=== PATIENT | male | born 2005 | race African-American/Black ===

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

== ENCOUNTER 2025-01-31 09:24 | Emergency (ER) | payer OTHER ==
--- OUTSIDE RECORDS SUMMARY | 2025-01-31 09:49 | XMS REPORT | Continuity of Care Document ---
Author Name Unknown Address [address] [facility] [place] [address] [facility] Address [address] [facility] [address] [place] [address] Care Team Providers Care Gas Operation Manager Name Role Phone Kindra Duran Primary Care Physician [phone] Jany Berg RN Attending Clinician Unavailable Only, Ang Db Test Attending Clinician Unavailabl Gladys Rich Attending Clinician [phone] GLADYS CARRINGTON Attending Clinician Unavailable Doctor Unassigned, [place] Attending Clinician U TOMASZ Boogie Attending Clinician Unavail able Nickolas Mclean MD Attending Clinician [phone] Sarah Hernadez RN Attending Clinician Unavailable Kofi CASEY, Candelaria Arteaga Attending Clinician Unavailab ALCIDES Nolen Attending Clinician Unavailable , Lab Attending Clinician Unavailable Alcides Cast MD Attending Clinician [phone] Lab, Adc Fam Pob I Attending Clinician Unavailab Katalina Restrepo Attending Clinician [phone] KATALINA AGUILAR Attending Clinician Unavailable Payers Payer Name Policy Type Policy Number Effective Date Expirati on Date Source Allergies, Adverse Reactions, Alerts Allergy Name Allergy Type Status Severity Reaction(s) Onset Date Inactive Date Treating Clinician Comments Source NO KNOWN ALLERGIE S Drug Class Active [facility] Social History Social Habit Start Date Stop Date Quantity Comments Source Exposure to SARS-CoV-2 (event) Not sure [facility] Sex Assigned At 2005 00:00:00 2005 00:00:00 [facility] Smoking Status Start Date Stop Date Source Unknown if ever smoked [facility] Medications Ordered Medication Name Filled Medication Name Start Date Stop Date Current Medication? Ordering Clinician Indication Dosage Frequency Signature (SIG) Comments Components Source AMLODIPINE TAB 2.5MG 2021-09 00:00: 00 Yes Ken Rasheed DYANAVEL XR AKI 2.5MG/ML 2021-09 00:00: 00 Yes Ken Rasheed IBUPROFEN 2021-09 00:00: 00 Yes Ken Rasheed AMOX/K CLAV [id number] 2-20 00:00: 00 Yes Ken Rasheed TAKE 6 ML BY MOUTH IN THE MORNING 01-04 00:00: 00 Yes Ken Rasheed Dose Unknown 10-14 00:00: 00 Yes Ken Rasheed hydrocortis one 2.5 % topical ointment 06-22 00:00: 00 Yes 1% Ken Rasheed mupirocin 2 % topical ointment 06-22 00:00: 00 Yes 1% Ken Rasheed amoxicillin 875 mg-potassiu m clavulanate 125 mg tablet 06-22 00:00: 00 Yes 1mg Ken Rasheed Trileptal 300 mg tablet 02-23 00:00: 00 Yes 1mg Ken Rasheed Vyvanse 50 mg capsule 02-23 00:00: 00 Yes 1mg Ken Rasheed cetirizine 10 mg tablet 01-26 00:00: 00 Yes 1mg Ken Rasheed Trileptal 300 mg tablet 01-26 00:00: 00 Yes 1mg Ken Rasheed Vyvanse 50 mg capsule 01-26 00:00: 00 Yes 1mg Ken Rasheed Immunizations Ordered Immunization Name Filled Immunization Name Date Status Comments Source SARS-COV-2 COVID-19 PFIZER VACCINE 2021-02-15 00:00:00 Completed [facility] SARS-COV-2 COVID-19 PFIZER VACCINE 2021-02-15 00:00:00 Completed [facility] SARS-COV-2 COVID-19 PFIZER VACCINE 2021-02-15 00:00:00 Completed [facility] HPV9 HPV9 2018-05-04 00:00:00 Completed Ken Rasheed Influenza, seasonal, inj Influenza, seasonal, inj 2017-08-04 00:00:00 Completed Ken Rasheed HPV9 HPV9 2017-05-15 00:00:00 Completed Ken Rasheed Influenza, seasonal, inj Influenza, seasonal, inj 2016-11-07 00:00:00 Completed Ken Rasheed meningococcal MCV4P meningococcal MCV4P 00:00:00 Completed Ken Rasheed Tdap Tdap 2016-01-08 00:00:00 Completed Ken Rasheed DTaP DTaP 2008-05-23 00:00:00 Completed Ken Rasheed Hep A, ped/adol, 2 dose Hep A, ped/adol, 2 dose 2008-05-23 00:00:00 Completed Ken Rasheed MMR MMR 2008-05-23 00:00:00 Completed Ken Rasheed IPV IPV 2008-05-23 00:00:00 Completed Ken Rasheed Hib (PRP-OMP) Hib (PRP-OMP) 2008-03-13 00:00:00 Completed Ken Rasheed Hep A, ped/adol, 2 dose Hep A, ped/adol, 2 dose 2007-10-26 00:00:00 Completed Ken Rahseed DTaP DTaP 2006-10-28 00:00:00 Completed Ken Rasheed MMR MMR 2006-10-28 00:00:00 Completed Ken Rasheed IPV IPV 2006-10-28 00:00:00 Completed Ken Rasheed varicella varicella 2006-10-28 00:00:00 Completed Ken Rasheed DTaP DTaP 2006-05-29 00:00:00 Completed Ken Rasheed Pneumococcal conjugate P Pneumococcal conjugate P 2006-05-29 00:00:00 Completed Ken Rasheed IPV IPV 2006-05-29 00:00:00 Completed Ken Rasheed DTaP DTaP 2006-03-13 00:00:00 Completed Ken Rasheed Pneumococcal conjugate P Pneumococcal conjugate P 2006-03-13 00:00:00 Completed Ken Rasheed DTaP DTaP 2005-05-07 00:00:00 Completed Ken Rasheed Hib (PRP-OMP) Hib (PRP-OMP) 2005-05-07 00:00:00 Completed Ken Rasheed MMR MMR 2005-05-07 00:00:00 Completed Ken Rasheed Pneumococcal conjugate P Pneumococcal conjugate P 2005-05-07 00:00:00 Completed Ken Rasheed IPV IPV 2005-05-07 00:00:00 Completed Ken Rasheed varicella varicella 2005-05-07 00:00:00 Completed Ken Rasheed Hep B, adolescent or ped Hep B, adolescent or ped 2005-02-07 00:00:00 Completed Ken Rasheed Hib (PRP-OMP) Hib (PRP-OMP) 2005-02-07 00:00:00 Completed Ken Rasheed Pneumococcal conjugate P Pneumococcal conjugate P 2005-02-07 00:00:00 Completed Ken Rasheed IPV IPV 2005-02-07 00:00:00 Completed Ken Rasheed DTaP DTaP 2005-02-07 00:00:00 Completed Ken Rasheed DTaP DTaP 2004 00:00:00 Completed Ken Rasheed Hep B, adolescent or ped Hep B, adolescent or ped 2004 00:00:00 Completed Ken Rasheed Hib (PRP-OMP) Hib (PRP-OMP) 2004 00:00:00 Completed Ken Rasheed Pneumococcal conjugate P Pneumococcal conjugate P 2004 00:00:00 Completed Ken Rasheed IPV IPV 2004 00:00:00 Completed Ken Rasheed Hep B, adolescent or ped Hep B, adolescent or ped 2004 00:00:00 Completed Ken Rasheed Vital Signs Vital Name Observation Time Observation Value Comments S ource Respiratory Rate 2025-01-11 14:28:00 18.00 /min Ken Rasheed BP Systolic 2025-01-11 14:28:00 129 mm[Hg] Avi Rasheed BP Diastolic 2025-01-11 14:28:00 73 mm[Hg] Melvin Rasheed Weight Measured 2025-01-11 14:28:00 197.40 pounds Ken Rasheed Height Measured 2025-01-11 14:28:00 61.20 inches Ken Rasheed Body Temperature 2025-01-11 14:28:00 98.10 degrees Ken F Wili Heart Rate 2025-01-11 14:28:00 74.00 /min Precious en F Wili BP Systolic 2023-02-14 09:49:00 130 mm[Hg] Step hen F Wili BP Diastolic 2023-02-14 09:49:00 70 mm[Hg] Melvin phen F Wili Weight Measured 2023-02-14 09:49:00 175.10 pounds Ken F Wili Height Measured 2023-02-14 09:49:00 63.78 inches Ken F Wili Body Temperature 2023-02-14 09:49:00 98.20 degrees Ken F Wili Heart Rate 2023-02-14 09:49:00 66.00 /min Precious en F Wili Respiratory Rate 2023-02-14 09:49:00 18.00 /min Ken F Wili BP Systolic 2022-12-31 13:58:00 142 mm[Hg] Step hen F Wili BP Diastolic 2022-12-31 13:58:00 77 mm[Hg] Melvin phen F Wili Weight Measured 2022-12-31 13:58:00 174.40 pounds Ken F Wili Height Measured 2022-12-31 13:58:00 63.78 inches Ken F Wili Body Temperature 2022-12-31 13:58:00 98.60 degrees Ken F Wili Heart Rate 2022-12-31 13:58:00 105.00 /min Step hen F Wili Respiratory Rate 2022-12-31 13:58:00 Ken F Wili BP Systolic 2022-09-17 15:29:00 128 mm[Hg] Step hen F Wili BP Diastolic 2022-09-17 15:29:00 76 mm[Hg] Melvin phen F Wili Weight Measured 2022-09-17 15:29:00 187.00 pounds Ken F Wili Height Measured 2022-09-17 15:29:00 63.78 inches Ken F Wili Body Temperature 2022-09-17 15:29:00 98.60 degrees Ken F Wili Heart Rate 2022-09-17 15:29:00 70.00 /min Precious en F Wili Respiratory Rate 2022-09-17 15:29:00 18.00 /min Ken F Wili BP Systolic 2019-10-11 15:10:00 127 mm[Hg] Step hen F Wili BP Diastolic 2019-10-11 15:10:00 78 mm[Hg] Melvin phen F Wili Weight Measured 2019-10-11 15:10:00 167.00 pounds Ken F Wili Height Measured 2019-10-11 15:10:00 63.78 inches Ken F Wili Body Temperature 2019-10-11 15:10:00 98.60 degrees Ken F Wili Heart Rate 2019-10-11 15:10:00 83.00 /min Precious en F Wili Respiratory Rate 2019-10-11 15:10:00 16.00 /min Ken F Wili BP Diastolic 2019-07-27 16:34:00 72 mm[Hg] Melvin phen F Wili Weight Measured 2019-07-27 16:34:00 162.00 pounds Ken F Wili Height Measured 2019-07-27 16:34:00 63.19 inches Ken F Wili Body Temperature 2019-07-27 16:34:00 Ken F Wili Heart Rate 2019-07-27 16:34:00 75.00 /min Precious en F Wili Respiratory Rate 2019-07-27 16:34:00 18.00 /min Ken F Wili BP Systolic 2019-07-27 16:34:00 119 mm[Hg] Step hen F Wili BP Systolic 2019-06-22 13:30:00 123 mm[Hg] Step hen F Wili BP Diastolic 2019-06-22 13:30:00 68 mm[Hg] Melvin phen F Wili Weight Measured 2019-06-22 13:30:00 164.00 pounds Ken F Wili Height Measured 2019-06-22 13:30:00 63.19 inches Ken F Wili Body Temperature 2019-06-22 13:30:00 97.90 degrees Ken F Wili Heart Rate 2019-06-22 13:30:00 90.00 /min Precious en F Wili Respiratory Rate 2019-06-22 13:30:00 18.00 /min Ken F Wili BP Systolic 2019-05-18 16:33:00 123 mm[Hg] Step hen F Wili BP Diastolic 2019-05-18 16:33:00 74 mm[Hg] Melvin phen F Wili Weight Measured 2019-05-18 16:33:00 166.20 pounds Ken F Wili Height Measured 2019-05-18 16:33:00 63.19 inches Ken F Wili Body Temperature 2019-05-18 16:33:00 98.00 degrees Ken F Wili Heart Rate 2019-05-18 16:33:00 72.00 /min Precious en F Wili Respiratory Rate 2019-05-18 16:33:00 18.00 /min Ken F Wili BP Systolic 2019-04-20 09:24:00 129 mm[Hg] Step hen F Wili BP Diastolic 2019-04-20 09:24:00 76 mm[Hg] Melvin phen F Wili Weight Measured 2019-04-20 09:24:00 162.00 pounds Ken F Wili Height Measured 2019-04-20 09:24:00 63.20 inches Ken F Wili Body Temperature 2019-04-20 09:24:00 97.70 degrees Ken F Wili Heart Rate 2019-04-20 09:24:00 67.00 /min Precious en F Wili Respiratory Rate 2019-04-20 09:24:00 18.00 /min Ken F Wili BP Systolic 2019-02-23 11:39:00 124 mm[Hg] Step hen F Wili BP Diastolic 2019-02-23 11:39:00 79 mm[Hg] Melvin phen F Wili Weight Measured 2019-02-23 11:39:00 152.00 pounds Ken F Wili Height Measured 2019-02-23 11:39:00 63.19 inches Ken F Wili Body Temperature 2019-02-23 11:39:00 98.70 degrees Ken F Wili Heart Rate 2019-02-23 11:39:00 80.00 /min Precious en F Wili Respiratory Rate 2019-02-23 11:39:00 Ken Rasheed Procedures Procedure Date / Time Performed Performing Clinicia n Source ASSIGNMENT OF BENEFITS 2020-06-02 20:25:57 Docto r Unassigned, [place] [facility] Encounters Start Date/Time End Date/Time Encounter Type Admission Type Attending [facility] Care Facility Care Department Encounter ID Source 2025-01-11 14:16:26 2025-01-11 14:16:26 Outpatient [facility] [id number] Ken Rasheed 2025-01-11 00:00:00 2025-01-11 00:00:00 Outpatient Visit [facility] [id number] Ken Rasheed 2022-12-31 14:48:57 2022-12-31 14:48:57 Outpatient [facility] [id number] Ken Rasheed 2021-10-05 00:00:00 2021-10-05 00:00:00 Telephone Jany Berg [facility] [id number] 350.1.13.10 4.2.7.2.686 [id number] [facility] 2021-10-03 14:30:00 2021-10-03 14:45:00 Laboratory Only Only, Ang Db Test [facility] 1.284.114 350.1.13.10 4.2.7.2.686 [id number] [facility] 2021-10-03 14:30:00 2021-10-03 14:30:00 Outpatient GLADYS WILLIAM [facility] [id number] [facility] 2021-10-03 13:30:00 2021-10-03 13:30:00 Outpatient R [facility] [id number] [facility] 2021-10-03 00:00:00 2021-10-03 00:00:00 Letter (Out) Doctor Unassigned, [place] [facility] [id number] 350.1.13.10 4.2.7.2.686 [id number] [facility] 2021-03-08 15:30:00 2021-03-08 15:30:00 Outpatient TOMASZ ASENCIO [facility] [id number] [facility] 2021-02-15 15:30:00 2021-02-15 15:30:00 Outpatient TOMASZ ASENCIO [facility] [id number] [facility] 2020-06-07 00:00:00 2020-06-07 00:00:00 Telephone Nickolas Mclean [facility] 1.2.114 350.1.13.10 4.2.7.2.686 [id number] [facility] 2020-06-07 00:00:00 2020-06-07 00:00:00 Telephone Nickolas Mclean [facility] [id number] 350.1.13.10 4.2.7.2.686 [id number] 2020-06-06 00:00:00 2020-06-06 00:00:00 [id number] 350.1.13.10 4.2.7.2.686 [id number] [facility] 2020-06-06 00:00:00 2020-06-06 00:00:00 [facility] [id number] 350.1.13.10 4.2.7.2.686 [id number] 2020-06-03 00:00:00 2020-06-03 00:00:00 Letter (Out) [facility] [id number] 350.1.13.10 4.2.7.2.686 [id number] 2020-06-03 00:00:00 2020-06-03 00:00:00 Letter (Out) [facility] [id number] 350.1.13.10 4.2.7.2.686 [id number] [facility] 2020-06-02 15:45:00 2020-06-02 15:45:00 Outpatient ALCIDES ELIZONDO [facility] [id number] [facility] 2020-06-02 15:29:57 2020-06-02 15:44:57 Starch Cooker Visit 1, Adc Lab [facility] 1.2.840.114 350.1.13.10 4.2.7.2.686 [id number] 2020-06-02 15:29:57 2020-06-02 15:44:57 Starch Cooker Visit 1, Adc Lab Alcides Cast [facility] 1.2.840.114 350.1.13.10 4.2.7.2.686 [id number] [facility] 2020-06-02 00:00:00 2020-06-02 00:00:00 Letter (Out) [facility] 1.2.840.114 350.1.13.10 4.2.7.2.686 [id number] 2020-06-02 00:00:00 2020-06-02 00:00:00 Orders Only Doctor Unassigned, [place] [facility] 1.2.840.114 350.1.13.10 4.2.7.2.686 [id number] 2020-06-02 00:00:00 2020-06-02 00:00:00 Letter (Out) Kofi, [facility] 1.2.840.114 350.1.13.10 4.2.7.2.686 [id number] [facility] 2020-06-02 00:00:00 2020-06-02 00:00:00 Orders Only Doctor Unassigned, [place] [facility] 1.2.840.114 350.1.13.10 4.2.7.2.686 [id number] [facility] 2020-06-01 13:15:08 2020-06-01 13:35:08 Laboratory Only Lab, Adc Fam Pob I Katalina Aguilar [facility] 1.0.114 350.1.13.10 4.2.7.2.686 [id number] [facility] 2020-06-01 13:15:08 2020-06-01 13:35:08 Laboratory Only Lab, Adc Fam Pob I [facility] 1.840.114 350.1.13.10 4.2.7.2.686 [id number] 2020-06-01 13:00:00 2020-06-01 13:00:00 Outpatient KATALINA PONCE [facility] [id number] [facility] 2020-05-30 00:00:00 2020-05-30 00:00:00 Outpatient [facility] [id number] [facility] Results Test Description Test Time Test Comments Results Result Co mments Source Ken RasheedCOMPREHENSIVE METABOLIC [id number] 00:00:00* Test Item Value Reference Range Interpretation Comme nts GLUCOSE (test code = 2345-7) 81 mg/dL UREA NITROGEN (BUN) (test code = 3094-0) 8 mg/dL CREATININE (test code = 2160-0) 0.66 mg/dL eGFR NON-AFR. UGANDAN (test code = 55990-2) DNR mL/min/1.73m2 eGFR (test code = 27900-3) DNR mL/min/1.73m2 BUN/CREATININE RATIO (test code = 3097-3) NOT APPLICABLE (calc) SODIUM (test code = 2951-2) 140 mmol/L POTASSIUM (test code = 2823-3) 4.5 mmol/L CHLORIDE (test code = 2075-0) 104 mmol/L CARBON DIOXIDE (test code = 2027-9) 24 mmol/L CALCIUM (test code = 14587-7) 10.0 mg/dL PROTEIN, TOTAL (test code = 2885-2) 7.3 g/dL ALBUMIN (test code = 1751-7) 4.6 g/dL GLOBULIN (test code = 82810-7) 2.7 g/dL(calc) ALBUMIN/GLOBULIN RATIO (test code = 1759-0) 1.7 (calc) BILIRUBIN, TOTAL (test code = 1975-2) 1.0 mg/dL ALKALINE PHOSPHATASE (test code = 6768-6) 358 U/L AST (test code = 1920-8) 16 U/L ALT (test code = 1742-6) 11 U/L Ken [id number] 00:00:00* Test Item Value Reference Range Interpretation Comme nts TSH (test code = 3016-3) 0.96 mIU/L Ken RasheedHEMOGLOBIN [id number] 00:00:00* Test Item Value Reference Range Interpretation Comme nts HEMOGLOBIN A1c (test code = 4548-4) 5.7 %oftotalHgb Ken RasheedCBC (INCLUDES DIFF/PLT)2019-02-24 00:00:00* Test Item Value Reference Range Interpretation Comme nts WHITE BLOOD CELL COUNT (test code = 6690-2) 6.3 Thousand/uL RED BLOOD CELL COUNT (test code = 789-8) 5.51 Million/uL HEMOGLOBIN (test code = 718-7) 14.8 g/dL HEMATOCRIT (test code = 4544-3) 44.9 % MCV (test code = 787-2) 81.5 fL MCH (test code = 785-6) 26.9 pg MCHC (test code = 786-4) 33.0 g/dL RDW (test code = 788-0) 12.9 % PLATELET COUNT (test code = 777-3) 261 Thousand/uL MPV (test code = 776-5) 12.6 fL ABSOLUTE NEUTROPHILS (test code = 751-8) 2048 cells/uL ABSOLUTE BAND NEUTROPHILS (test code = 60066-4) DNR cells/uL ABSOLUTE METAMYELOCYTES (gilberto t code = 39207-4) DNR cells/uL ABSOLUTE MYELOCYTES (test code = 36855-9) DNR cells/uL ABSOLUTE PROMYELOCYTES (test code = 19163-7) DNR cells/uL ABSOLUTE LYMPHOCYTES (test code = 731-0) 2778 cells/uL ABSOLUTE MONOCYTES (test cod e = 742-7) 334 cells/uL ABSOLUTE EOSINOPHILS (test code = 711-2) 1077 cells/uL ABSOLUTE BASOPHILS (test cod e = 704-7) 63 cells/uL ABSOLUTE BLASTS (test code = 19535-7) DNR cells/uL ABSOLUTE NUCLEATED RBC (test code = 00377-3) DNR cells/uL NEUTROPHILS (test code = 770-8) 32.5 % BAND NEUTROPHILS (test code = 764-1) DNR % METAMYELOCYTES (test code = 740-1) DNR % MYELOCYTES (test code = 749-2) DNR % PROMYELOCYTES (test code = 783-1) DNR % LYMPHOCYTES (test code = 736-9) 44.1 % REACTIVE LYMPHOCYTES (test code = 02271-7) DNR % MONOCYTES (test code = 5905-5) 5.3 % EOSINOPHILS (test code = 713-8) 17.1 % BASOPHILS (test code = 706-2) 1.0 % BLASTS (test code = 709-6) DNR % NUCLEATED RBC (test code = 72978-7) DNR /100WBC COMMENT(S) (test code = 8251-1) DNR Ken Rasheed Notes Date/Time Note Provider Source Ken Rasheed [facility]
--- NOTE | 2025-01-31 10:35 | RAD REPORT ---
EXAMINATION: XR RIGHT KNEE CLINICAL INDICATION: Male, 19 years old. PAIN TECHNIQUE: Multiple views of the right knee were obtained. COMPARISON: No prior exam. FINDINGS: No fracture or dislocation seen. Small suprapatellar joint effusion.
[2025-01-31] MEDS ORDERED: ACETAMINOPHEN 500 MG TAB ONE (10:37)
[2025-01-31] MEDS ORDERED: IBUPROFEN 200 MG TAB PO ONE (10:37)
--- NOTE | 2025-01-31 10:59 | EDPHYS ---
Physician Documentation [facility] Name: Power Auguste Age: 19 yrs Sex: Male : 2005 Arrival Date: 01/31/2025 Time: 09:24 Bed 11 Private MD: ED Physician Tom Puente HPI: 01/31 10:22 This 19 yrs old Black Male presents to ER via Ambulatory with complaints of Leg Injury sb4 - Right, Leg Swelling. 10:22 Patient states that he was playing football yesterday, he jumped up for a ball, and sb4 landed awkwardly on his right leg. Is complaining of pain in his right outer knee. Is able to ambulate, just with pain. Denies any prior issues with this leg. No numbness or tingling. Historical: - Allergies: 10:15 No Known Allergies; ap3 - Home Meds: 10:15 None [Active]; ap3 - PMHx: 10:15 None; ap3 - Immunization history:: Adult Immunizations up to date. - Infectious Disease History:: Denies. - Social history:: Smoking status: Patient denies any tobacco usage or history of. ROS: 10:22 Constitutional: Negative for fever, chills, and weight loss, sb4 10:22 MS/extremity: Positive for injury or acute deformity, pain, swelling, of the right knee, 10:22 All other systems are negative, Exam: 10:22 Constitutional: This is a well developed, well nourished patient who is awake, alert, sb4 and in no acute distress. Head/Face: Normocephalic, atraumatic. Eyes: Extra-ocular motions intact. Periorbital areas with no swelling, redness, or edema. ENT: Mucous membranes moist. Respiratory: No increased work of breathing, no retractions or nasal flaring. Skin: Warm, dry with normal turgor. Normal color with no rashes, no lesions, and no evidence of cellulitis. 10:22 Musculoskeletal/extremity: Joints: the right knee displays painful range of motion, swelling, tenderness, Weight bearing: able to fully bear weight, Vital Signs: 10:14 BP 152 / 79; Pulse 67; Resp 17; Temp 98.4(O); Pulse Ox 99% on R/A; Weight 83.91 kg; ap3 Height 5 ft. 4 in. ; Pain 7/10; 10:14 Body Mass Index 31.75 (83.91 kg, 162.56 cm) ap3 10:14 Pain Scale: Adult ap3 MDM: 09:40 Medical Screening Exam initiated sb4 10:23 Differential diagnosis: closed fracture, contusion, Ligamentous injury. sb4 10:36 Data reviewed: vital signs, nurses notes, radiologic studies, and as a result, I will sb4 discharge patient. Independent interpretation of the following test(s) in the Emergency Department X-Ray: My interpretation is my interpretation of the right knee x ray images is no acute fracture or dislocation. Counseling: I had a detailed discussion with the patient and/or guardian regarding the historical points, exam findings, and any diagnostic results supporting the discharge/admit diagnosis, radiology results, the need for outpatient follow up, a orthopedic surgeon, to return to the emergency department if symptoms worsen or persist or if there are any questions or concerns that arise at home. 01/31 10:17 Order name: Knee Right 3 View XRAY; Complete Time: 10:35 sb4 01/31 10:57 [place] [facility]: Knee brace; Complete Time: 10:57 jl7 Administered Medications: 10:45 Drug: Ibuprofen PO 600 mg PO once Route: PO; jl7 11:16 Follow up: Response: No adverse reaction; Medication administered at discharge. jl7 10:45 Drug: Acetaminophen PO 1000 mg PO once Route: PO; jl7 11:16 Follow up: Response: Medication administered at discharge. jl7 Disposition: 17:10 Co-signature as Attending Physician, Tom Puente MD. jj9 Disposition Summary: 01/31/25 10:59 Discharge Ordered Notes: Location: Home sb4 Problem: new sb4 Symptoms: are unchanged sb4 Condition: Stable sb4 Diagnosis - Sprain of other specified parts of right knee sb4 Followup: sb4 - With: Pk Darby MD - When: 1 week - Reason: Further diagnostic work-up, Recheck today's complaints, Re-evaluation by your physician Discharge Instructions: - Discharge Summary Sheet sb4 - Knee Sprain, Adult, [id number] sb4 - Lateral Collateral Knee Ligament Sprain sb4 Forms: - Work release form sb4 - Patient Portal Instructions sb4 - Leadership Thank You Letter sb4 Prescriptions: - meloxicam 7.5 mg Oral tablet - take 1 tablet ORAL route daily; 14 tablet; Refills: 0, Product Selection sb4 Permitted Signatures: Dispatcher [employer] Irina Perkins RN RN jl7 Elsi Diego RN RN ap3 Jennifer Maldonado, PALetha PAJohnC sb4 Tom Puente MD MD jj9 Corrections: (The following items were deleted from the chart) 10:57 10:36 Knee Immobilizer ordered. sb4 jl7
--- NOTE | 2025-01-31 10:59 | ER ---
Nurse's Notes [facility] Name: Power Auguste Age: 19 yrs Sex: Male : 2005 Arrival Date: 01/31/2025 Time: 09:24 Bed 11 Private MD: Diagnosis: Sprain of other specified parts of right knee Presentation: 01/31 10:14 Chief complaint: Patient states: he fell onto his right leg yesterday when playing ap3 football. patient is having pain on the outer portion of his right knee. patient currently rates his pain as a 7/10 on the pain scale. Coronavirus screen: At this time, the client does not indicate any symptoms associated with coronavirus-19. Ebola Screen: No symptoms or risks identified at this time. Initial Sepsis Screen: Does the patient meet any 2 criteria? No. Patient's initial sepsis screen is negative. Does the patient have a suspected source of infection? No. Patient's initial sepsis screen is negative. Risk Assessment: Do you want to hurt yourself or someone else? Patient reports no desire to harm self or others. Onset of symptoms was January 30, 2025. 10:14 Method Of Arrival: Ambulatory ap3 10:14 Acuity: XI 4 ap3 Triage Assessment: 10:15 General: Appears in no apparent distress. Behavior is calm, cooperative, appropriate ap3 for age. Pain: Complains of pain in right knee Pain currently is 7 out of 10 on a pain scale. Neuro: Level of Consciousness is awake, alert, obeys commands, Oriented to person, place, time, situation, Appropriate for age. Cardiovascular: Patient's skin is warm and dry. Respiratory: Airway is patent Respiratory effort is even, unlabored, Respiratory pattern is regular, symmetrical. Musculoskeletal: Reports pain in right knee. Injury Description: fall onto right knee. Historical: - Allergies: 10:15 No Known Allergies; ap3 - Home Meds: 10:15 None [Active]; ap3 - PMHx: 10:15 None; ap3 - Immunization history:: Adult Immunizations up to date. - Infectious Disease History:: Denies. - Social history:: Smoking status: Patient denies any tobacco usage or history of. Screenin:16 Abuse screen: Denies threats or abuse. Nutritional screening: No deficits noted. ap3 Tuberculosis screening: No symptoms or risk factors identified. 11:16 [facility] ED Fall Risk Assessment (Adult) History of falling in the last 3 months, jl7 including since admission Yes- single mechanical fall (1 pt) Confusion or Disorientation No (0 pts) Intoxicated or Sedated No (0 pts) Impaired Gait No (0 pts) Mobility Assist Device Used No (0 pt) Altered Elimination No (0 pt) Score/Fall Risk Level 0 - 2 = Low Risk Oriented to surroundings, Maintained a safe environment. Vital Signs: 10:14 BP 152 / 79; Pulse 67; Resp 17; Temp 98.4(O); Pulse Ox 99% on R/A; Weight 83.91 kg; ap3 Height 5 ft. 4 in. ; Pain 7/10; 10:14 Body Mass Index 31.75 (83.91 kg, 162.56 cm) ap3 10:14 Pain Scale: Adult ap3 ED Course: 09:31 Patient arrived in ED. im 09:37 Jennifer Maldonado PA-C is PHCP. sb4 09:37 Tom Puente MD is Attending Physician. sb4 10:15 Triage completed. ap3 10:16 Arm band placed on right wrist. ap3 10:33 Knee Right 3 View XRAY In Process Unspecified. EDMS 10:33 Irina Wren, RN is Primary Nurse. jl7 10:57 Right knee brace. jl7 10:59 Pk Darby MD is Referral Physician. sb4 11:16 Patient has correct armband on for positive identification. Provided Education on: jl7 discharge. 11:16 No provider procedures requiring assistance completed. Patient did not have IV access jl7 during this emergency room visit. Administered Medications: 10:45 Drug: Ibuprofen PO 600 mg PO once Route: PO; jl7 11:16 Follow up: Response: No adverse reaction; Medication administered at discharge. jl7 10:45 Drug: Acetaminophen PO 1000 mg PO once Route: PO; jl7 11:16 Follow up: Response: Medication administered at discharge. jl7 Medication: 11:16 VIS not applicable for this client. jl7 Outcome: 10:59 Discharge ordered by . sb4 11:16 Discharged to home ambulatory, jl7 11:16 Condition: stable 11:16 Discharge instructions given to patient, Instructed on discharge instructions, follow up and referral plans. medication usage, Demonstrated understanding of instructions, follow-up care, medications, Prescriptions given X 1, 11:17 Patient left the ED. jl7 Signatures: Dispatcher [employer] Irina Perkins RN RN jl7 Elsi Diego RN RN [email or web address] Jennifer Maldonado, PA-C PA-C sb4 Terri Clemons
[2025-01-31 11:30] VITALS: BP 152/79; TEMP 98.4; O2SAT 99
== END 2025-01-31 11:17 | disposition home or self-care (01) ==
LOC: ER 09:24
DX: S83.8X1A Sprain of other specified parts of right knee, initial encounter (principal)
CPT/HCPCS: 99283